=== PATIENT | male | born 1955 | race Caucasian/White ===

== ENCOUNTER → 2016-07-31 | Outpatient (CLI) | payer MEDICARE, OTHER ==
[2016-03-20 07:00] VITALS: BP 94/58
[~2016-07-31] MED LIST: ASPI81TA44 PO; DOCU-27 PO; FOLI1TAB16 PO; LEVO175T2 PO; LEVO175T5 PO; PHEN100C PO
[2016-07-31 11:26] LABS: BILIRUBIN,URINE NEGATIVE (NEG); GLUCOSE,URINE NEGATIVE (NEG); NITRITE,URINE POSITIVE (NEG); PH,URINE 7.5; PROTEIN,URINE 100 mg/dL (NEG-TRACE)
[2016-07-31 11:42] LABS: BACTERIA,URINE MODERATE /HPF (0-FEW); SQUAMOUS EPITHELIAL CELL,UR FEW /LPF; WBC,URINE TNTC /HPF (0-4)
== END | disposition home or self-care (01) ==
LOC: SPEC 10:56
PROVIDERS: ATTEND Family Medicine
DX: N39.0 Urinary tract infection, site not specified (principal)
CPT/HCPCS: 81001; 87086

== ENCOUNTER 2016-08-11 21:07 | Inpatient (IN) | payer MEDICARE, OTHER ==
[~2016-08-11] VITALS: Ht 175.3 cm; Wt 57.6 kg
--- NOTE | 2016-08-11 21:58 | ED.ADGEN ---
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 Patient has home health care given to him by [facility]. Today they left him at home under the mistaken impression that family was going to be with him. Subsequently, the patient was left alone. He comes to the emergency department with no complaints but has no source of care. Home health care agency says they will have someone available for him in the morning. Review of Systems Review of Systems Constitutional: Denies fever or chills. [] Eyes: Denies change in visual acuity. [] HENT: Denies nasal congestion or sore throat. [] Respiratory: Denies cough or shortness of breath. [] Cardiovascular: Denies chest pain or edema. [] GI: Denies abdominal pain, nausea, vomiting, bloody stools or diarrhea. [] : Denies dysuria. [] Musculoskeletal: Denies back pain or joint pain. [] Integument: Denies rash. [] Neurologic: Denies headache, focal weakness or sensory changes. [] Endocrine: Denies polyuria or polydipsia. [] Lymphatic: Denies swollen glands. [] Psychiatric: Denies depression or anxiety. [] Current Medications Current Medications Allergies Allergies Allergies Coded Allergies Type Severity Reaction Last Updated Verified cephalexin Allergy Mild Nausea and Vomiting 02/28/16 Yes I S O L A T I O N *CONTACT* Allergy Unknown 02/28/16 Yes Physical Exam Physical Exam Constitutional: Well developed, well nourished, no acute distress, non-toxic appearance. [] HENT: Normocephalic, atraumatic, bilateral external ears normal, oropharynx moist, no oral exudates, nose normal. [] Eyes: PERRLA, EOMI, conjunctiva normal, no discharge. [] Neck: Normal range of motion, no tenderness, supple, no stridor. [] Cardiovascular:Heart rate regular rhythm, no murmur [] Lungs & Thorax: Bilateral breath sounds clear to auscultation [] Abdomen: Bowel sounds normal, soft, no tenderness, no masses, no pulsatile masses. [] Skin: Warm, dry, no erythema, no rash. [] Extremities: No tenderness, no cyanosis, no clubbing, ROM intact, no edema. [] Neurologic: Some spontaneous movement of his upper extremities but his lower extremities are definitely fixed and contracture. Psychologic: Affect normal, judgement normal, mood normal. [] Current Patient Data Vital Signs Vital Signs Date Time Temp Pulse Resp B/P Pulse Ox O2 Delivery O2 Flow Rate FiO2 08/11/16 21:15 98.1 98 18 107/65 93 Room Air 98.1 EKG EKG [] Radiology/Procedures Radiology/Procedures [] Course & Med Decision Making Course & Med Decision Making Pertinent Labs and Imaging studies reviewed. (See chart for details) We will check basic labs on the gentleman and admit him to the hospital for further evaluation and treatment. [] Dragon Disclaimer Dragon Disclaimer This electronic medical record was generated, in whole or in part, using a voice recognition dictation system. TINY TSE MD Aug 11, 2016 21:57
[2016-08-11] MEDS: IV NORMAL SALINE 1000ML BAG 1,000 ML IV SCH (22:27)
[2016-08-11 22:38] LABS: BASO % 1 % (0-3); EOS % 5 % (0-3); HEMATOCRIT 35.1 % (39.0-53.0); HEMOGLOBIN 11.6 g/dL (13.0-17.5); LYMPH # 0.4 x10^3/uL (1.0-4.8); LYMPH % 4 % (24-48); MEAN CORPUSCULAR HEMOGLOBIN 31 pg (25-35); MEAN CORPUSCULAR HGB CONC 33 g/dL (31-37); MEAN CORPUSCULAR VOLUME 92 fL (79-100); MONO % 6 % (0-9); NEUT % 85 % (31-73); PLATELET COUNT 144 x10^3/uL (140-400); RED CELL DISTRIBUTION WIDTH 15.9 % (11.5-14.5)
[2016-08-11 22:48] LABS: CALCIUM 8.5 mg/dL (8.5-10.1); CREATININE 0.6 mg/dL (0.7-1.3); GFR 136.1; POTASSIUM 3.8 mmol/L (3.5-5.1)
[2016-08-11 23:00] VITALS: BP 91/60
[2016-08-11 23:10] LABS: % BASOS 1 % (0-3); % EOS 8 % (0-5); PLT ESTIMATE ADEQUATE (ADEQUATE)
[2016-08-12] MEDS ORDERED: IBUP-1027 PO (01:24)
[2016-08-12 01:34] LABS: BILIRUBIN,URINE LARGE (NEG); GLUCOSE,URINE NEGATIVE (NEG); NITRITE,URINE POSITIVE (NEG); PH,URINE 7.5; PROTEIN,URINE 30 mg/dL (NEG-TRACE)
[2016-08-12 02:48] LABS: BACTERIA,URINE MANY /HPF (0-FEW); RBC,URINE >40 /HPF (0-2); SQUAMOUS EPITHELIAL CELL,UR FEW /LPF; WBC,URINE >40 /HPF (0-4)
[2016-08-12 03:19] VITALS: BP 122/65
[2016-08-12] MEDS ORDERED: IBUPROFEN 400 MG TABLET. PO PRN (04:45)
[2016-08-12 07:51] VITALS: BP 113/71
[2016-08-12] MEDS: IV NORMAL SALINE 1000ML BAG 1,000 ML IV SCH ×2 (08:00→18:00)
[2016-08-12] MEDS: LEVOTHYROXINE 175 MCG TABLET PO SCH (09:37)
[2016-08-12] MEDS: FOLIC ACID 1 MG TABLET. PO SCH (09:37)
[2016-08-12] MEDS: ASPIRIN CHEWABLE 81 MG TABLET. PO SCH (09:37)
[2016-08-12] MEDS: PHENYTOIN SODIUM EXTENDED 100 MG CAPSULE PO SCH ×2 (09:38→23:23)
[2016-08-12 11:35] VITALS: BP 102/52
[2016-08-12] MEDS ORDERED: LEVOFLOXACIN 500 MG TABLET PO SCH (12:00)
[2016-08-12 15:00] VITALS: BP 102/63
--- NOTE | 2016-08-12 15:38 | PDOC1 ---
History and Physical Date of Admission Date of Admission DATE: 08/12/16 TIME: 15:32 Identification/Chief Complaint Chief Complaint sent by [facility] of concerns for FTT and need for more health care Source Source: Caregiver, Chart review History of Present Illness History of Present Illness 61y.o male, either has hx TBI, has contractures, wheelchair bound and chronic womack (I do believe), sent by his Allaince bec of concerns of FTT and need for more level of care. Pt thinks he is doing fine at home, he claims someone comes few hrs a day. LAbs ok except for incidental UTI. Has a womack, Denies sx Pt seemingly wants to be dcd Pt has flexion contractures ext, head bent and back in a flexed position I do wonder how he is able to care for himself when he has no help at home DID start on IV antibiotic for UTI and urine cx SW consulted including PT/OT Past Medical History CENTRAL NERVOUS SYSTEM: Seizure Endocrine: Hypothyroidism Past Surgical History Past Surgical History: Other Family History Family History: Family History Unknown Social History Smoke: No ALCOHOL: none Drugs: None Current Problem List Problem List Problems Medical Problems: (1) Failure to thrive Status: Acute (2) Hx of traumatic brain injury Status: Acute Problems: Current Medications Current Medications Current Medications Sodium Chloride (Iv Sodium Chloride 0.9% 1000ml Bag) 1,000 ml @ 100 mls/hr Q10H IV Last administered on 08/11/16 22:27; Start 08/11/16 at 22:00; Stop at 21:59 Aspirin (Children'S Aspirin) 81 mg DAILYWBKFT PO Last administered on 08/12/16 09:37; Start 08/12/16 at 08:00 Folic Acid (Folic Acid) 1 mg DAILY08 PO Last administered on 08/12/16 09:37; Start 08/12/16 at 08:00 Ibuprofen (Motrin) 200 mg PRN Q6HRS PRN PO INFLAMMATION; Start 08/12/16 at 04:45 Levothyroxine Sodium (Synthroid) 175 mcg DAILY07 PO Last administered on 09:37; Start 08/12/16 at 07:00 Phenytoin Sodium 200 mg 200 mg BID PO Last administered on 08/12/16 09:38; Start 08/12/16 at 09:00 Levofloxacin/ Dextrose (LEVAQUIN 500mg PREMIX) 100 ml @ 100 mls/hr DAILY06 IV ; Start 08/12/16 at 09:45; Stop 08/12/16 at 11:56; Status DC Levofloxacin (Levaquin) 500 mg DAILY06 PO Last administered on 08/12/16t 13:19; Start 08/12/16 at 12:00 Active Scripts Active Dilantin (Phenytoin Sodium Extended) 100 Mg Capsule 200 Mg PO BID 60 Days Colace (Docusate Sodium) 100 Mg Capsule 100 Mg PO BID Children's Aspirin (Aspirin) 81 Mg Tab.chew 81 Mg PO DAILYWBKFT Reported Ibuprofen 400 Mg Tablet 200 Mg PO PRN Q6HRS PRN Synthroid (Levothyroxine Sodium) 175 Mcg Tablet 1 Tab PO DAILY Folic Acid 1 Mg Tablet 1 Tab PO DAILY Allergies Allergies: Coded Allergies: cephalexin (Verified Allergy, Mild, Nausea and Vomiting, 02/28/16) I S O L A T I O N *CONTACT* (Verified Allergy, Unknown, 02/28/16) mrsa ROS General: No: Appetite, Chills, Fatigue, Malaise, Night Sweats, Other PSYCHOLOGICAL ROS: No: Anxiety, Behavioral Disorder, Concentration difficultie , Decreased libido, Depression, Disorientation, Hallucinations, Hostility, Irritablity, Memory difficulties, Mood Swings, Obsessive thoughts, Other, Physical abuse, Sexual abuse, Sleep disturbances, Suicidal ideation Eyes: No Blurry vision, No Decreased vision, No Double vision, No Dry eyes, No Excessive tearing, No Eye Pain, No Itchy Eyes, No Loss of vision, No Other, No Photophobia, No Scotomata, No Uses contacts, No Uses glasses HEENT: No: Epistaxis, Heacaches, Hearing change, Nasal congestion, Nasal discharge, Oral lesions, Other, Sinus pain, Sneezing, Snoring, Sore Throat, Tinnitus, Vertigo, Visual Changes, Vocal changes ALLERGY AND IMMUNOLOGY: No: Hives, Insect Bite Sensitivity, Itchy/Watery Eyes, Nasal Congestion, Other, Post Nasal Drip, Seasonal Allergies Hematological and Lymphatic: No: Bleeding Problems, Blood Clots, Blood Transfusions, Brusing, Night Sweats, Other, Pallor, Swollen Lymph Nodes ENDOCRINE: No: Breast Changes, Galactorrhea, Hair Pattern Changes, Hot Flashes , Malaise/lethargy, Mood Swings, Other, Palpitations, Polydipsia/polyuria, Skin Changes, Temperature Intolerance, Unexpected Weight Changes Breast: No New/Changing Breast Lumps, No Nipple changes, No Nipple discharge, No Other Respiratory: No: Cough, Hemoptysis, Orthopnea, Other, Pleuritic Pain, SOB with excertion, Shortness of breath, Sputum Changes, Stridor, Tachypnea, Wheezing Cardiovascular: No Chest Pain, No Edema, No Lt Headedness, No Orthopnea, No Other, No Palpitations, No Paroxysmal Noc. Dyspnea Gastrointestinal: No Abdominal Pain, No Constipation, No Diarrhea, No Hematochezia, No Melena, No Nausea, No Other, No Vomiting Genitourinary: No , No , No , No , No , No , No , No Discharge, No Dysuria, No Flank Pain, No Frequency, No Hematuria, No Incontinence, No Other, No Pain, No Retention, No Urgency Musculoskeletal: No Gait Disturbance, No Joint Pain, No Joint Stiffness, No Joint Swelling, No Muscle Pain, No Muscular Weakness, No Other, No Pain In:, No Swelling In: Neurological: No Behavorial Changes, No Bowel/Bladder ControlChng, No Confusion , No Dizziness, No Gait Disturbance, No Headaches, No Impaired Coord/balance, No Memory Loss, No Numbness/Tingling, No Other, No Seizures, No Speech Problems , No Tremors, No Visual Changes, No Weakness Skin: No Acne, No Dry Skin, No Eczema, No Hair Changes, No Lumps, No Mole Changes, No Mottling, No Nail Changes, No Other, No Pruritus, No Rash, No Skin Lesion Changes Physical Exam General: Oriented X3, Cooperative, No acute distress HEENT: Atraumatic, PERRLA Lungs: Clear to auscultation, Normal air movement Heart: S1S2, no gallops Cardiovascular: S1, S2 Abdomen: Normal bowel sounds, Soft, No tenderness, No hepatosplenomegaly, No masses Extremities: Other (flexion contractures, bent head and back flexion, scaphoid abd, minimal subQ tissue, poor over all hygieb, long nails) Neuro: Normal gait, Normal speech, Strength at 5/5 X4 ext, Normal tone, Sensation intact, Cranial nerves 3-12 NL, Reflexes 2+ Vitals Vitals Vital Signs Date Time Temp Pulse Resp B/P Pulse Ox O2 Delivery O2 Flow Rate FiO2 08/12/16 11:35 97.5 82 18 102/52 94 Room Air 97.5 Labs Labs Laboratory Tests Test 08/11/16 22:15 08/11/16 23:35 White Blood Count 11.0x10^3/uL (4.0-11.0) Red Blood Count 3.80x10^6/uL (4.30-5.70) Hemoglobin 11.6g/dL (13.0-17.5) Hematocrit 35.1% (39.0-53.0) Mean Corpuscular Volume 92fL (79-100) Mean Corpuscular Hemoglobin 31pg (25-35) Mean Corpuscular Hemoglobin Concent 33g/dL (31-37) Red Cell Distribution Width 15.9% (11.5-14.5) Platelet Count 144x10^3/uL (140-400) Neutrophils (%) (Auto) 85% (31-73) Lymphocytes (%) (Auto) 4% (24-48) Monocytes (%) (Auto) 6% (0-9) Eosinophils (%) (Auto) 5% (0-3) Basophils (%) (Auto) 1% (0-3) Neutrophils # (Auto) 9.4x10^3uL (1.8-7.7) Lymphocytes # (Auto) 0.4x10^3/uL (1.0-4.8) Monocytes # (Auto) 0.7x10^3/uL (0.0-1.1) Eosinophils # (Auto) 0.5x10^3/uL (0.0-0.7) Basophils # (Auto) 0.0x10^3/uL (0.0-0.2) Segmented Neutrophils % 74% (35-66) Band Neutrophils % 4% (0-9) Lymphocytes % 4% (24-48) Monocytes % 9% (0-10) Eosinophils % 8% (0-5) Basophils % 1% (0-3) Platelet Estimate Adequate (ADEQUATE) Sodium Level 139mmol/L (136-145) Potassium Level 3.8mmol/L (3.5-5.1) Chloride Level 104mmol/L (98-107) Carbon Dioxide Level 30mmol/L (21-32) Anion Gap 5 (6-14) Blood Urea Nitrogen 10mg/dL (8-26) Creatinine 0.6mg/dL (0.7-1.3) Estimated GFR (Cockcroft-Gault) 136.1 Glucose Level 122mg/dL (70-99) Calcium Level 8.5mg/dL (8.5-10.1) Urine Collection Type Unknown Urine Color Red Urine Clarity Turbid Urine pH 7.5 Urine Specific [place] 1.020 Urine Protein 30mg/dL (NEG-TRACE) Urine Glucose (UA) Negativemg/dL (NEG) Urine Ketones (Stick) Tracemg/dL (NEG) Urine Blood Moderate (NEG) Urine Nitrite Positive (NEG) Urine Bilirubin Large (NEG) Urine Urobilinogen Dipstick 4.0mg/dL (0.2 mg/dL) Urine Leukocyte Esterase Large (NEG) Urine RBC >40/HPF (0-2) Urine WBC >40/HPF (0-4) Urine Squamous Epithelial Cells Few/LPF Urine Bacteria Many/HPF (0-FEW) Urine Mucus Mod/LPF Laboratory Tests Test 08/11/16 22:15 08/11/16 23:35 White Blood Count 11.0x10^3/uL (4.0-11.0) Red Blood Count 3.80x10^6/uL (4.30-5.70) Hemoglobin 11.6g/dL (13.0-17.5) Hematocrit 35.1% (39.0-53.0) Mean Corpuscular Volume 92fL (79-100) Mean Corpuscular Hemoglobin 31pg (25-35) Mean Corpuscular Hemoglobin Concent 33g/dL (31-37) Red Cell Distribution Width 15.9% (11.5-14.5) Platelet Count 144x10^3/uL (140-400) Neutrophils (%) (Auto) 85% (31-73) Lymphocytes (%) (Auto) 4% (24-48) Monocytes (%) (Auto) 6% (0-9) Eosinophils (%) (Auto) 5% (0-3) Basophils (%) (Auto) 1% (0-3) Neutrophils # (Auto) 9.4x10^3uL (1.8-7.7) Lymphocytes # (Auto) 0.4x10^3/uL (1.0-4.8) Monocytes # (Auto) 0.7x10^3/uL (0.0-1.1) Eosinophils # (Auto) 0.5x10^3/uL (0.0-0.7) Basophils # (Auto) 0.0x10^3/uL (0.0-0.2) Segmented Neutrophils % 74% (35-66) Band Neutrophils % 4% (0-9) Lymphocytes % 4% (24-48) Monocytes % 9% (0-10) Eosinophils % 8% (0-5) Basophils % 1% (0-3) Platelet Estimate Adequate (ADEQUATE) Sodium Level 139mmol/L (136-145) Potassium Level 3.8mmol/L (3.5-5.1) Chloride Level 104mmol/L (98-107) Carbon Dioxide Level 30mmol/L (21-32) Anion Gap 5 (6-14) Blood Urea Nitrogen 10mg/dL (8-26) Creatinine 0.6mg/dL (0.7-1.3) Estimated GFR (Cockcroft-Gault) 136.1 Glucose Level 122mg/dL (70-99) Calcium Level 8.5mg/dL (8.5-10.1) Urine Collection Type Unknown Urine Color Red Urine Clarity Turbid Urine pH 7.5 Urine Specific [place] 1.020 Urine Protein 30mg/dL (NEG-TRACE) Urine Glucose (UA) Negativemg/dL (NEG) Urine Ketones (Stick) Tracemg/dL (NEG) Urine Blood Moderate (NEG) Urine Nitrite Positive (NEG) Urine Bilirubin Large (NEG) Urine Urobilinogen Dipstick 4.0mg/dL (0.2 mg/dL) Urine Leukocyte Esterase Large (NEG) Urine RBC >40/HPF (0-2) Urine WBC >40/HPF (0-4) Urine Squamous Epithelial Cells Few/LPF Urine Bacteria Many/HPF (0-FEW) Urine Mucus Mod/LPF VTE Prophylaxis Ordered VTE Prophylaxis Devices: Yes VTE Pharmacological Prophylaxi: Yes Assessment/Plan Assessment/Plan 1. FTT 2. Incidental UTI in a pt with chronic indwelling womack 3 Hx TBI? with flexion contractures 4. Wheel chair bound 5. SIRS, POA no sepsis 6. Mod to severe PCM 7. Hypothyroidism on synthroid PLAN: Lost his IV - ok for PO levaquin Urine cx CHange womack if that has not been done recently SW for SNU screen Cont synthroid NUtrition consult Dw pt and RN DVT VIRGILIO Greco MD Aug 12, 2016 15:38
[2016-08-12] MEDS: ENOXAPARIN 40 MG/0.4 ML SYRINGE. SQ SCH (18:21)
[2016-08-12 19:00] VITALS: BP 147/75
[2016-08-12 23:00] VITALS: BP 116/65
[2016-08-13 03:00] VITALS: BP 121/67
[2016-08-13] MEDS: LEVOFLOXACIN 250 MG TABLET. PO SCH (06:11)
[2016-08-13] MEDS: LEVOTHYROXINE 175 MCG TABLET PO SCH (06:11)
[2016-08-13 07:30] VITALS: BP 127/68
[2016-08-13 10:34] VITALS: BP 129/96
[2016-08-13] MEDS: FOLIC ACID 1 MG TABLET. PO SCH (12:07)
[2016-08-13] MEDS: ASPIRIN CHEWABLE 81 MG TABLET. PO SCH (12:08)
[2016-08-13] MEDS: PHENYTOIN SODIUM EXTENDED 100 MG CAPSULE PO SCH ×2 (12:08→20:55)
[2016-08-13 14:31] VITALS: BP 108/50
--- NOTE | 2016-08-13 15:23 | PDOC ---
PROGRESS NOTES Chief Complaint Chief Complaint cc: The patient was brought in because of concerns of failure to thrive and needing more health care. -History of smoking -TBI -Brain tumor -Dialysis -Suprapubic catheter -Hypothyroidism -Seizure History of Present Illness History of Present Illness The patient was lying on his side and hunched over upon entrance into his room. He had slow responses and movements with difficulty grasping objects. His primary concern upon questioning about symptoms was he did not know why he was in the hospital. His only symptomatic complaint was "feeling rotten". Vitals Vitals Vital Signs Date Time Temp Pulse Resp B/P Pulse Ox O2 Delivery O2 Flow Rate FiO2 08/13/16 14:31 98.1 76 20 108/50 95 Room Air 98.1 Physical Exam General: Alert, Cooperative, No acute distress Heart: Normal S1, Normal S2 Lungs: Clear, Other (A few ronchi noted on anterior chest auscultation) Abdomen: No tenderness, No hepatosplenomegaly, No masses Extremities: No clubbing, No cyanosis Skin: No rashes, No breakdown, Other (Spots were noted on his left arm.) Labs LABS Laboratory Tests Test 08/13/16 06:00 Nasal Screen MRSA (PCR) Positive (Negative) Review of Systems Review of Systems The patients reports not having symptoms of nausea or vomiting. He does report having an aspect of psychological disease for which he sees a therapist. Assessment and Plan Assessmemt and Plan Problems Medical Problems: (1) Failure to thrive Status: Acute (2) Hx of traumatic brain injury Status: Acute Assessment: Mr. Adams is a 61 year old male who presented because of caregiver concerns of his failure to thrive. -History of smoking -TBI -Brain tumor -Dialysis -Suprapubic catheter -Hypothyroidism -Seizure Plan: 1. PT/OT 2. Continue antibiotics 3. Continue home medications 4. Continue DVT prophylaxis 5. Monitor vitals for UTI complications Problems: Comment Review of Relevant I have reviewed the following items saad (where applicable) has been applied. Labs Laboratory Tests Test 08/11/16 22:15 08/11/16 23:35 08/13/16 06:00 White Blood Count 11.0x10^3/uL (4.0-11.0) Red Blood Count 3.80x10^6/uL (4.30-5.70) Hemoglobin 11.6g/dL (13.0-17.5) Hematocrit 35.1% (39.0-53.0) Mean Corpuscular Volume 92fL (79-100) Mean Corpuscular Hemoglobin 31pg (25-35) Mean Corpuscular Hemoglobin Concent 33g/dL (31-37) Red Cell Distribution Width 15.9% (11.5-14.5) Platelet Count 144x10^3/uL (140-400) Neutrophils (%) (Auto) 85% (31-73) Lymphocytes (%) (Auto) 4% (24-48) Monocytes (%) (Auto) 6% (0-9) Eosinophils (%) (Auto) 5% (0-3) Basophils (%) (Auto) 1% (0-3) Neutrophils # (Auto) 9.4x10^3uL (1.8-7.7) Lymphocytes # (Auto) 0.4x10^3/uL (1.0-4.8) Monocytes # (Auto) 0.7x10^3/uL (0.0-1.1) Eosinophils # (Auto) 0.5x10^3/uL (0.0-0.7) Basophils # (Auto) 0.0x10^3/uL (0.0-0.2) Segmented Neutrophils % 74% (35-66) Band Neutrophils % 4% (0-9) Lymphocytes % 4% (24-48) Monocytes % 9% (0-10) Eosinophils % 8% (0-5) Basophils % 1% (0-3) Platelet Estimate Adequate (ADEQUATE) Sodium Level 139mmol/L (136-145) Potassium Level 3.8mmol/L (3.5-5.1) Chloride Level 104mmol/L (98-107) Carbon Dioxide Level 30mmol/L (21-32) Anion Gap 5 (6-14) Blood Urea Nitrogen 10mg/dL (8-26) Creatinine 0.6mg/dL (0.7-1.3) Estimated GFR (Cockcroft-Gault) 136.1 Glucose Level 122mg/dL (70-99) Calcium Level 8.5mg/dL (8.5-10.1) Urine Collection Type Unknown Urine Color Red Urine Clarity Turbid Urine pH 7.5 Urine Specific [place] 1.020 Urine Protein 30mg/dL (NEG-TRACE) Urine Glucose (UA) Negativemg/dL (NEG) Urine Ketones (Stick) Tracemg/dL (NEG) Urine Blood Moderate (NEG) Urine Nitrite Positive (NEG) Urine Bilirubin Large (NEG) Urine Urobilinogen Dipstick 4.0mg/dL (0.2 mg/dL) Urine Leukocyte Esterase Large (NEG) Urine RBC >40/HPF (0-2) Urine WBC >40/HPF (0-4) Urine Squamous Epithelial Cells Few/LPF Urine Bacteria Many/HPF (0-FEW) Urine Mucus Mod/LPF Nasal Screen MRSA (PCR) Positive (Negative) Laboratory Tests Test 08/13/16 06:00 Nasal Screen MRSA (PCR) Positive (Negative) Microbiology 08/12/16 Urine Culture - Preliminary, Resulted 08/12/16 Urine Culture Result 1 (XAVIER) - Preliminary, Resulted Medications Current Medications Sodium Chloride (Iv Sodium Chloride 0.9% 1000ml Bag) 1,000 ml @ 100 mls/hr Q10H IV Last administered on 08/11/16 22:27; Start 08/11/16 at 22:00; Stop at 21:59; Status DC Aspirin (Children'S Aspirin) 81 mg DAILYWBKFT PO Last administered on 12:08; Start 08/12/16 at 08:00 Folic Acid (Folic Acid) 1 mg DAILY08 PO Last administered on 08/13/16 12:07; Start 08/12/16 at 08:00 Ibuprofen (Motrin) 200 mg PRN Q6HRS PRN PO INFLAMMATION; Start 08/12/16 at 04:45 Levothyroxine Sodium (Synthroid) 175 mcg DAILY07 PO Last administered on 06:11; Start 08/12/16 at 07:00 Phenytoin Sodium 200 mg 200 mg BID PO Last administered on 08/13/16 12:08; Start 08/12/16 at 09:00 Levofloxacin/ Dextrose (LEVAQUIN 500mg PREMIX) 100 ml @ 100 mls/hr DAILY06 IV ; Start 08/12/16 at 09:45; Stop 08/12/16 at 11:56; Status DC Levofloxacin (Levaquin) 500 mg DAILY06 PO Last administered on 08/12/16 13:19; Start 08/12/16 at 12:00; Stop 08/12/16 at 16:59; Status DC Enoxaparin Sodium (Lovenox 40mg Syringe) 40 mg Q24H SQ Last administered on 08/12 18:21; Start 08/12/16 at 16:00 Levofloxacin (Levaquin) 250 mg DAILY06 PO Last administered on 08/13/16 06:11 ; Start 08/13/16 at 06:00 Active Scripts Active Dilantin (Phenytoin Sodium Extended) 100 Mg Capsule 200 Mg PO BID 60 Days Colace (Docusate Sodium) 100 Mg Capsule 100 Mg PO BID Children's Aspirin (Aspirin) 81 Mg Tab.chew 81 Mg PO DAILYWBKFT Reported Ibuprofen 400 Mg Tablet 200 Mg PO PRN Q6HRS PRN Synthroid (Levothyroxine Sodium) 175 Mcg Tablet 1 Tab PO DAILY Folic Acid 1 Mg Tablet 1 Tab PO DAILY Vitals/I & O Vital Sign - Last 24 Hours 08/12/16 08/12/16 08/12/16 08/13/16 19:00 20:00 23:00 03:00 Temp 97.9 97.7 96.6 97.9 97.7 96.6 Pulse 83 73 75 Resp 18 18 18 B/P 147/75 116/65 121/67 Pulse Ox 94 93 97 O2 Delivery Room Air Room Air Room Air Room Air 08/13/16 08/13/16 08/13/16 08/13/16 07:30 08:00 10:34 14:31 Temp 98.2 98.1 98.1 98.2 98.1 98.1 Pulse 69 71 76 Resp 16 20 B/P 127/68 129/96 108/50 Pulse Ox 92 93 95 O2 Delivery Room Air Room Air Room Air Room Air Intake and Output 08/12/16 08/12/16 08/13/16 15:00 23:00 07:00 Intake Total 810 ml 180 ml Output Total 1350 ml Balance 810 ml 180 ml -1350 ml MO GORE III DO Aug 13, 2016 15:23
[2016-08-13] MEDS: ENOXAPARIN 40 MG/0.4 ML SYRINGE. SQ SCH ×2 (16:00→18:41)
[2016-08-13 19:00] VITALS: BP 101/60
[2016-08-13 23:00] VITALS: BP 118/59
[2016-08-14 03:08] VITALS: BP 106/54
[2016-08-14 07:00] VITALS: BP 106/66
[2016-08-14] MEDS: LEVOFLOXACIN 250 MG TABLET. PO SCH (07:13)
[2016-08-14] MEDS: LEVOTHYROXINE 175 MCG TABLET PO SCH (07:13)
[2016-08-14] MEDS: FOLIC ACID 1 MG TABLET. PO SCH (08:56)
[2016-08-14] MEDS: PHENYTOIN SODIUM EXTENDED 100 MG CAPSULE PO SCH (08:56)
[2016-08-14] MEDS: ASPIRIN CHEWABLE 81 MG TABLET. PO SCH (08:57)
[2016-08-14 10:44] VITALS: BP 109/65
--- NOTE | 2016-08-14 12:10 | PDOC ---
PROGRESS NOTES Chief Complaint Chief Complaint cc: The patient was brought in because of concerns of failure to thrive and needing more health care. -History of smoking -TBI -Brain tumor -Dialysis -Suprapubic catheter -Hypothyroidism -Seizure History of Present Illness History of Present Illness The patient is back to a baseline status and will be discharged to a home. We discussed the patient with a geriatric case manager. Vitals Vitals Vital Signs Date Time Temp Pulse Resp B/P Pulse Ox O2 Delivery O2 Flow Rate FiO2 08/14/16 10:44 97.9 88 18 109/65 91 Room Air 97.9 Physical Exam General: Alert, No acute distress Heart: Normal S1, Normal S2 Lungs: Clear, Other (No chest retractions) Abdomen: Normal bowel sounds, No tenderness, No hepatosplenomegaly Extremities: No clubbing, No cyanosis Skin: No rashes, No breakdown, Other (Spots were noted on his left arm.) Review of Systems Review of Systems The patient does not report having any nausea. He does not have lightheadedness or dizziness. Assessment and Plan Assessmemt and Plan Problems Medical Problems: (1) Failure to thrive Status: Acute (2) Hx of traumatic brain injury Status: Acute Assessment: A 61 year old male presented because of failure to thrive. -History of smoking -TBI -Brain tumor -Dialysis -Suprapubic catheter -Hypothyroidism -Seizure Plan: 1. Likely discharge 2. Continue home medications 3. Ensure vitals are stable before discharge. 4. PT/OT 5. Continue antibiotics Problems: Comment Review of Relevant I have reviewed the following items saad (where applicable) has been applied. Labs Laboratory Tests Test 08/13/16 06:00 Nasal Screen MRSA (PCR) Positive (Negative) Microbiology 08/12/16 Urine Culture - Preliminary, Resulted 08/12/16 Urine Culture Result 1 (XAVIER) - Preliminary, Resulted Medications Current Medications Sodium Chloride (Iv Sodium Chloride 0.9% 1000ml Bag) 1,000 ml @ 100 mls/hr Q10H IV Last administered on 08/11/16 22:27; Start 08/11/16 at 22:00; Stop at 21:59; Status DC Aspirin (Children'S Aspirin) 81 mg DAILYWBKFT PO Last administered on 08:57; Start 08/12/16 at 08:00 Folic Acid (Folic Acid) 1 mg DAILY08 PO Last administered on 08/14/16 08:56; Start 08/12/16 at 08:00 Ibuprofen (Motrin) 200 mg PRN Q6HRS PRN PO INFLAMMATION; Start 08/12/16 at 04:45 Levothyroxine Sodium (Synthroid) 175 mcg DAILY07 PO Last administered on 07:13; Start 08/12/16 at 07:00 Phenytoin Sodium 200 mg 200 mg BID PO Last administered on 08/14/16 08:56; Start 08/12/16 at 09:00 Levofloxacin/ Dextrose (LEVAQUIN 500mg PREMIX) 100 ml @ 100 mls/hr DAILY06 IV ; Start 08/12/16 at 09:45; Stop 08/12/16 at 11:56; Status DC Levofloxacin (Levaquin) 500 mg DAILY06 PO Last administered on 08/12/16 13:19; Start 08/12/16 at 12:00; Stop 08/12/16 at 16:59; Status DC Enoxaparin Sodium (Lovenox 40mg Syringe) 40 mg Q24H SQ Last administered on 08/12 18:21; Start 08/12/16 at 16:00 Levofloxacin (Levaquin) 250 mg DAILY06 PO Last administered on 08/14/16 07:13 ; Start 08/13/16 at 06:00 Active Scripts Active Dilantin (Phenytoin Sodium Extended) 100 Mg Capsule 200 Mg PO BID 60 Days Colace (Docusate Sodium) 100 Mg Capsule 100 Mg PO BID Children's Aspirin (Aspirin) 81 Mg Tab.chew 81 Mg PO DAILYWBKFT Reported Ibuprofen 400 Mg Tablet 200 Mg PO PRN Q6HRS PRN Synthroid (Levothyroxine Sodium) 175 Mcg Tablet 1 Tab PO DAILY Folic Acid 1 Mg Tablet 1 Tab PO DAILY Vitals/I & O Vital Sign - Last 24 Hours 08/13/16 08/13/16 08/13/16 08/14/16 14:31 19:00 23:00 03:08 Temp 98.1 98.8 97.9 97.9 98.1 98.8 97.9 97.9 Pulse 76 81 80 81 Resp 20 20 20 20 B/P 108/50 101/60 118/59 106/54 Pulse Ox 95 94 93 94 O2 Delivery Room Air Room Air Room Air Room Air 08/14/16 08/14/16 08/14/16 07:00 08:00 10:44 Temp 97.9 97.9 97.9 97.9 Pulse 87 88 Resp 18 18 B/P 106/66 109/65 Pulse Ox 90 91 O2 Delivery Room Air Room Air Room Air Intake and Output 08/13/16 08/13/16 08/14/16 15:00 23:00 07:00 Intake Total 865 ml Output Total 1000 ml Balance 865 ml -1000 ml MO GORE III DO Aug 14, 2016 12:10
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
== END 2016-08-14 18:48 | disposition home or self-care (01) | DRG 640 ==
LOC: ER 21:07 → 5 NORTH 21:50
PROVIDERS: ADMIT Internal Medicine; ATTEND Internal Medicine
DX: R62.7 Adult failure to thrive (principal); E43 Unspecified severe protein-calorie malnutrition; G82.50 Quadriplegia, unspecified; N39.0 Urinary tract infection, site not specified; R65.10 Systemic inflammatory response syndrome (SIRS) of non-infectious origin without acute organ dysfunction; Z68.1 Body mass index [BMI] 19.9 or less, adult; E03.9 Hypothyroidism, unspecified; Z88.8 Allergy status to other drugs, medicaments and biological substances; Z87.820 Personal history of traumatic brain injury; Z99.3 Dependence on wheelchair; Z87.891 Personal history of nicotine dependence
CPT/HCPCS: 36415; 80048; 81001; 85007; 85027; 87086; 87641; J1650; J7030; 99285-25

== ENCOUNTER 2016-09-16 17:54 | Emergency (ER) | payer MEDICARE, OTHER ==
[~2016-09-16] VITALS: Ht 175.3 cm; Wt 59.0 kg
[~2016-09-16 17:54] MED LIST changes: +IBUP-1027 PO
[2016-09-16 18:09] VITALS: BP 163/113
[2016-09-16] MEDS ORDERED: DIPHTH,PERTUSS(ACELL),TET TOX 0.5 ML DISP.SYRIN. VAX IM ONE (18:15)
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
[2016-09-16] MEDS ORDERED: KETOROLAC TROMETHAMINE 60 MG/2 ML INJ. IM ONE (19:15)
--- NOTE | 2016-09-17 08:56 | RAD ---
Examination: 3 views of the left knee History: History of trauma, fall Comparison: None available Findings: The evaluation of the alignment of the knee joint on the AP, oblique views is limited due to contracted appearance. Laterally the alignment of the knee joint grossly appears unremarkable. There is no obvious acute fracture dislocation identified. No significant knee joint effusion identified. Impression: Limited examination due to contraction. No acute fracture identified.
--- NOTE | 2016-09-17 08:58 | RAD ---
Examination: 2 views of the right hip with frontal view of the pelvis History: History of fall, pain. Comparison: 03/18/2016 Findings: Osseous demineralization limits evaluation. The femoral head is within the acetabulum. An obvious acute fracture is not identified. Examination limited due to contracted appearance. Impression: 1. No acute fracture identified. Examination limited due to contracted appearance and due to osseous demineralization.
== END 2016-09-16 19:38 | disposition home or self-care (01) ==
LOC: ER 19:10
DX: M25.551 Pain in right hip (principal); M25.562 Pain in left knee; Z87.820 Personal history of traumatic brain injury; Z88.1 Allergy status to other antibiotic agents; Z91.041 Radiographic dye allergy status
CPT/HCPCS: 73502; 73562; 96372; 99284; J1885

== ENCOUNTER 2016-11-08 19:09 | Emergency (ER) | payer MEDICARE, OTHER ==
[~2016-11-08] VITALS: Ht 175.3 cm; Wt 59.0 kg
[~2016-11-08 19:09] MED LIST changes: +DOCU-109 PO; -DOCU-27 PO
[2016-11-08 21:30] VITALS: BP 142/66
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
== END 2016-11-08 21:39 | disposition home or self-care (01) ==
LOC: ER 19:09
DX: T85.9XXA Unspecified complication of internal prosthetic device, implant and graft, initial encounter (principal); G82.20 Paraplegia, unspecified; Z87.820 Personal history of traumatic brain injury; Z88.1 Allergy status to other antibiotic agents; Z91.041 Radiographic dye allergy status; Y84.6 Urinary catheterization as the cause of abnormal reaction of the patient, or of later complication, without mention of misadventure at the time of the procedure; Y92.89 Other specified places as the place of occurrence of the external cause
CPT/HCPCS: 99283